=== PATIENT | male | born 1935 | race Caucasian/White ===

== ENCOUNTER 2017-03-10 15:20 | Inpatient (IN) | payer MEDICARE ==
[~2017-03-10 15:20] MED LIST: ISOVUE-370 76%-LOCM 1 ML ONE; Iopamidol 370 76% 50 ML VIAL FS ONE
[2017-03-10] MEDS ORDERED: Ondansetron HCl/PF 4 MG/2 ML Vial ONE ×2 (16:27→18:50)
[2017-03-10] MEDS ORDERED: Fentanyl 100 MCG/2 ML VIAL ONE (16:27)
[2017-03-10 16:32] LABS: Hematocrit 52.1 % (42.0-52.0); Mean Platelet Volume 8.8 fL (7.4-10.4); Red Blood Cell (RBC) Count 5.14 mill/uL (4.70-6.10); White Blood Cell (WBC) Count 14.9 thou/uL (4.8-10.8)
[2017-03-10 16:45] LABS: Band 19 % (5-11); Macrocytosis SLIGHT = 6-15 cells (100X) (0-5/hpf); Neutrophil 71 % (42-75); Polychromasia SLIGHT = 2-3 cells (100X) (0-2/hpf); Reactive Lymphocytes 3 % (0-10)
[2017-03-10 16:47] LABS: ALT (SGPT) 35 U/L (8-55); AST (SGOT) 30 U/L (5-34); Alkaline Phosphatase 83 U/L (40-150); Anion Gap 14 mmol/L (10-20); BUN (Urea Nitrogen) 25 mg/dL (8.4-25.7); Bilirubin, Total 1.6 mg/dL (0.2-1.2); Calc. Creatinine Clearance 0 mL/min (70-130); Calcium 9.4 mg/dL (7.8-10.44); Carbon Dioxide 27 mmol/L (23-31); Chloride 100 mmol/L (98-107); Estimated GFR-MDRD 67; Lipase 8 U/L (8-78)
[2017-03-10 16:52] LABS: Troponin I Less than 0.010 ng/mL (< 0.028)
--- NOTE | 2017-03-10 16:59 | RAD ---
PORTABLE CHEST: Date: 03/10/17 HISTORY: Chest pain. COMPARISON: 06/24/15. FINDINGS: Heart size within normal limits. There are postop sternotomy changes. Lungs are clear of infiltrates. IMPRESSION: No active intrathoracic disease. POS: [facility]
--- NOTE | 2017-03-10 18:20 | CT ---
CT ABDOMEN AND PELVIS WITH CONTRAST: Date: 03/10/17 HISTORY: Small bowel obstruction. COMPARISON: None FINDINGS: Lung bases are clear. No pericardial effusion. Prior cholecystectomy. The liver is unremarkable, as well as the pancreas and spleen. Adrenal glands are normal. No hydronephrosis. There is a focal area of calcifications within the mid to small bowel mesentery. There is increased m esenteric fat of the small bowel. The cecum is in the midline of the abdomen. There is proximal small bowel rotation, as well as invers e relationship of superior mesenteric artery and vein. Hypodensity is present of the superior pole right kidney, although is too small to characterize on to day's examination. Moderate degenerative disc space disease L4-L5 and L5-S1, along with associated facet arthropathy. Ca lcifications of the iliolumbar ligaments present bilaterally. IMPRESSION: 1. Partially calcified mass in the central mesentery of the mid to small bowel with increased mesent jamie fat, as well as increased number of lymph nodes and mild mesenteric edema. 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 Recommend clinical correlation for evaluation of carcinoid tumor. If there is suggestion of this, a nuclear medicine octreoscan can be performed. 2. Pelvic side wall lymph node dissection and prostatectomy. No abnormal soft tissue thickening or e vidence of obturator or internal iliac adenopathy. POS: [facility]
[2017-03-10] MEDS ORDERED: Promethazine HCl 25 MG/ML VIAL ONE (20:19)
--- NOTE | 2017-03-10 21:30 | PDOC.EVN ---
Event Note - Event Note Event Note: [id number] 1. Calcified mass 2. Nausea and vomiting 3. r/o carcionoid tumor 4. htn plan: see orders
[2017-03-10] MEDS ORDERED: Promethazine HCl 25 MG in Sodium Chloride 0.9% 50 ML IVPB PRN (21:34)
[2017-03-10] MEDS ORDERED: Ondansetron ODT 4 MG TAB SL PRN (21:37)
[2017-03-10] MEDS ORDERED: Ondansetron HCl/PF 4 MG/2 ML Vial IVP PRN (21:37)
[2017-03-10] MEDS ORDERED: Acetaminophen 325 MG TAB PO PRN (21:44)
[2017-03-10] MEDS ORDERED: HYDROcodone/Acetaminophen 5/325 mg Tablet PO PRN (21:44)
[2017-03-10] MEDS ORDERED: Dextrose 5 %-0.45 % NaCl 1,000 ML IV SCH (21:45)
[2017-03-10 22:15] VITALS: BMI 29.1
[2017-03-10] MEDS: Dextrose 5 % And 0.9 % NaCl 1,000 ML IV SCH (22:37)
[2017-03-11] MEDS: Piperacillin/Tazobactam 3.375 GM in Sodium Chloride 0.9% 100 ML IVPB SCH ×5 (00:13→23:19)
[2017-03-11 05:21] LABS: #Eosinphils 0.1 thou/uL (0.0-0.7); #Monocytes 0.8 thou/uL (0.11-0.59); #Neutrophils 8.7 thou/uL (1.40-6.50); %Basophils 0.1 % (0.0-1.0); %Eosinophils 0.5 % (0.0-10.0); %Lymphocytes 9.2 % (21.0-51.0); %Monocytes 7.7 % (0.0-10.0); Hematocrit 45.4 % (42.0-52.0); Mean Platelet Volume 7.6 fL (7.4-10.4); Red Blood Cell (RBC) Count 4.47 mill/uL (4.70-6.10); White Blood Cell (WBC) Count 10.5 thou/uL (4.8-10.8)
[2017-03-11 05:32] LABS: ALT (SGPT) 29 U/L (8-55); AST (SGOT) 24 U/L (5-34); Alkaline Phosphatase 61 U/L (40-150); Anion Gap 10 mmol/L (10-20); BUN (Urea Nitrogen) 23 mg/dL (8.4-25.7); Bilirubin, Total 1.4 mg/dL (0.2-1.2); Calc. Creatinine Clearance 79 mL/min (70-130); Calcium 8.4 mg/dL (7.8-10.44); Carbon Dioxide 25 mmol/L (23-31); Chloride 104 mmol/L (98-107); Estimated GFR-MDRD 68; Globulin 2.5 g/dL (2.4-3.5); Protein, Total 5.7 g/dL (5.8-8.1)
--- NOTE | 2017-03-11 05:56 | HP ---
CHIEF COMPLAINT: Abdominal pain, nausea and vomiting. HISTORY OF PRESENT ILLNESS: The patient is a 81 years old male with past medical history of hypertension, hyperlipidemia, GERD and coronary artery disease who came today complaining of abdominal distention, nausea and vomiting. The patient said he was doing fine and all of a sudden today, he started having the abdominal distention, felt like abdomen bloated, then he started having numerous episodes of nausea and vomiting since then. Patient started having diarrhea also since this morning. Denies any blood in the stool. Denies any black stool. Denies any blood in the vomit. He complains of abdominal bloating. Denies any pain, but feels distended. Denies any chest pain, denies any trouble breathing, denies stiffness. PAST MEDICAL HISTORY: As per HPI. PAST SURGICAL HISTORY: CABG, cholecystectomy and prostatectomy. SOCIAL HISTORY: Denies smoking, denies alcohol, denies any drugs. FAMILY HISTORY: Denies any heart problems. REVIEW OF SYSTEMS: Constitutional: Denies any fever, denies any chills. Eyes : Denies vision problems. Ears: Denies hearing loss. Neck: Denies any neck pain. Cardiovascular System: Denies any chest pain. Gastrointestinal: Positive for abdominal pain. Positive for nausea and vomiting. Genitourinary: Denies dysuria. Integument: Denies any rash. Cranial Nervous System: Denies syncope, denies lightheadedness. Psychiatric: Denies anxiety. Musculoskeletal: Denies any joint deformities. All other review of systems are reviewed and are negative. PHYSICAL EXAMINATION: VITAL SIGNS: At the time of H&P performed, blood pressure is 153/73, pulse ox 96% and heart rate 92. GENERAL: The patient appears comfortable. HEENT: Pupils are equal, round and reactive. Anterior nares patent. Teeth intact. Tongue is moist. NECK: Supple. No JVD. CARDIOVASCULAR SYSTEM: S1 and S2 present. Regular rate and rhythm. No murmurs , no rubs, no gallops. RESPIRATORY SYSTEM: No wheezing, no rhonchi. Breath sounds bilaterally. GASTROINTESTINAL: Abdomen is soft and nontender. No guarding, no organomegaly. Distended. Mild tender to palpate. No rebound tenderness. In the right upper quadrant, old scar present. PSYCHIATRIC: Mood is appropriate at this time. INTEGUMENT: No rashes seen. LABORATORY DATA: Labs at the time of H&P performed, white count 14.9, hemoglobin 17.8 and platelet count is 137. BMP showed sodium of 136, potassium 4.7, chloride 100, CO2 of 27, BUN of 25 and creatinine 1.07. IMAGING DATA: CT abdomen and pelvis are positive for partially calcified mass in the central mesentery of the mid to small bowel with increased mesenteric fat as well as increased number of lymph nodes and mild mesenteric edema. 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 Clinical correlation of pelvic sidewall lymph node is present, dissection and prostatectomy present. ASSESSMENT AND PLAN: The patient is a 81 years old male. 1. Nausea, vomiting and abdominal distention. Plan to consult GI to evaluate patient. Plan to monitor the patient closely. 2. Calcified mass in the central mesentery, need to rule out carcinoid tumor. We will go ahead and consult Hematology/Oncology to evaluate the patient. We will start patient on IV fluids. 3. Nausea and vomiting, p.r.n. antiemetics. 4. Hypertension. Continue home blood pressure medications. 5. History of hyperlipidemia. Continue statins. 6. History of coronary artery disease. Continue home medications. The case was discussed in detail with the patient. MTDD
[2017-03-11] MEDS: Heparin 5,000 UNITS/ML VIAL SC SCH ×3 (08:25→20:54)
[2017-03-11] MEDS: Dextrose 5 % And 0.9 % NaCl 1,000 ML IV SCH ×2 (11:41→23:19)
--- NOTE | 2017-03-11 17:09 | PDOC.PN ---
- Subjective Encounter Start Date: 03/11/17 Encounter Start Time: 10:00 Pt seen for followup re: diarrhea. Denies chest pain, shortness of breath. nausea+, no vomiting. Has loose stools. - Objective MAR Reviewed: Yes Vital Signs & Weight: Vital Signs (12 hours) Temp Pulse Resp BP Pulse Ox 03/11/17 12:00 97.4 F L 79 20 169/76 H 96 03/11/17 08:00 98.1 F 81 18 153/75 H 96 Weight Admit Weight 214 lb 15.2 oz Weight 214 lb 15.2 oz I&O: 03/10/17 03/11/17 03/12/17 06:59 06:59 06:59 Intake Total 700 480 Output Total 100 Balance 600 480 Result Diagrams: 03/11/17 04:42 03/11/17 04:42 Phys Exam - Physical Examination Constitutional: NAD HEENT: PERRLA, moist MMs, sclera anicteric, oral pharynx no lesions Neck: no nodes, no JVD, supple, full ROM Respiratory: no wheezing, no rales, no rhonchi, clear to auscultation bilateral Cardiovascular: RRR, no rub Gastrointestinal: soft, non-tender, no distention, positive bowel sounds Musculoskeletal: pulses present Neurological: non-focal, moves all 4 limbs Lymphatic: no nodes Psychiatric: normal affect, A&O x 3 Skin: no rash, normal turgor, cap refill <2 seconds Dx/Plan (1) Diarrhea Code(s): R19.7 - DIARRHEA, UNSPECIFIED Status: Acute (2) Hyponatremia Code(s): E87.1 - HYPO-OSMOLALITY AND HYPONATREMIA Status: Acute (3) Abdominal pain Code(s): R10.9 - UNSPECIFIED ABDOMINAL PAIN Status: Acute (4) Nausea Code(s): R11.0 - NAUSEA Status: Acute (5) HTN (hypertension) Code(s): I10 - ESSENTIAL (PRIMARY) HYPERTENSION Status: Chronic (6) Dyslipidemia Code(s): E78.5 - HYPERLIPIDEMIA, UNSPECIFIED Status: Chronic (7) GERD (gastroesophageal reflux disease) Code(s): K21.9 - GASTRO-ESOPHAGEAL REFLUX DISEASE WITHOUT ESOPHAGITIS Status: Chronic - Plan PT/OT, out of bed/ambulate, DVT proph w/SCDs * . Await stool studies. Await GI consult. 5HIAA level pending, oncology consulted re; ? carcinoid. Hyponatremia mild, will recheck. Review of Systems - Review of Systems Constitutional: negative: Fever, Chills, Sweats, Weakness, Malaise Respiratory: negative: Cough, Dry, Shortness of Breath, Hemoptysis, SOB with Excertion, Pleuritic Pain, Sputum, Wheezing Cardiovascular: negative: Chest Pain, Palpitations, Orthopnea, Paroxysmal Noc. Dyspnea, Edema, Light Headedness Gastrointestinal: Nausea, Abdominal Pain. negative: Vomiting, Diarrhea, Constipation, Melena, Hematochezia Genitourinary: negative: Dysuria, Frequency, Incontinence, Hematuria, Retention - Medications/Allergies Allergies/Adverse Reactions: Allergies Allergy/AdvReac Type Severity Reaction Status Date / Time codeine Allergy "pass out" Verified 03/10/17 22:08 latex Allergy Rash Verified 03/10/17 22:08 Medications: Current Medications Acetaminophen (Tylenol) 650 mg PO Q4H PRN PRN Reason: Headache/Fever or Pain Hydrocodone Bitart/Acetaminophen ([place] 5/325) 1 tab PO Q4H PRN PRN Reason: Moderate Pain (4-6) Aspirin (Ecotrin) 325 mg PO DAILY [facility] Atorvastatin Calcium (Lipitor) 20 mg PO HS [facility] Cholecalciferol (Vitamin D3) 5,000 units PO DAILY [facility] Diphenhydramine HCl (Benadryl) 25 mg PO HS [facility] Heparin Sodium (Porcine) (Heparin) 5,000 units SC TID [facility] Last Admin: 03/11/17 15:55 Dose: 5,000 units Promethazine HCl 25 mg/ Sodium (Chloride) 51 mls @ 204 mls/hr IVPB Q6H PRN PRN Reason: severe vomiting Stop: 03/14/17 03:30 Dextrose/Sodium Chloride (D5 0.9% Ns) 1,000 mls @ 75 mls/hr IV .[id number] [facility] Last Admin: 03/11/17 11:41 Dose: 1,000 mls Piperacillin Sod/Tazobactam (Sod 3.375 gm/ Sodium Chloride) 100 mls @ 200 mls/ hr IVPB Q6HR [facility] Last Admin: 03/11/17 11:40 Dose: 100 mls Lisinopril (Zestril) 5 mg PO DAILY [facility] Metoprolol Tartrate (Lopressor) 25 mg PO BID [facility] Non-Formulary Medication (Ascorbic Acid [Vitamin C With Windy Hips Ext Release]) 500 mg PO BID [facility] Non-Formulary Medication (Glu/Jaswinder-Msm#1/D3/C/Mn/Fayd/Bor [Glucosamine Chondroitin Complex]) 1 tab PO HS [facility] Non-Formulary Medication (Omeprazole [Omeprazole]) 40 mg PO DAILY [facility] Non-Formulary Medication (Vitamin B Complex & Vit C No.4 [Super B Complex]) 150 mg PO DAILY [facility] Simethicone (Mylicon Chewable) 40 mg PO Q6H PRN PRN Reason: Gas Pain Sodium Chloride (Flush - Normal Saline) 10 ml IVF Q12HR [facility] Last Admin: 03/11/17 08:30 Dose: Not Given Sodium Chloride (Flush - Normal Saline) 10 ml IVF PRN PRN PRN Reason: Saline Flush
--- NOTE | 2017-03-11 20:33 | CON ---
DATE OF CONSULTATION: 03/11/2017 REASON FOR CONSULTATION: Mesenteric mass. HISTORY OF PRESENT ILLNESS: Mr. Acevedo is a very pleasant 81-year-old gentleman who presented to the emergency room yesterday with abdominal bloating and vomiting. He states both and Saturday evening, he had some abdominal discomfort in his upper abdomen. He took Tums and it improved. Saturday, he was okay. Saturday, he began to have the pain during the day and eventually led to vomiting x6. He then began to have diarrhea, so he came to the emergency room for evaluation. He had an abdominal pelvis CT, which showed a partially calcified mass in the central mesentery of the mid small bowel. There was increased mesenteric fat as well as an increased number of lymph nodes and mild mesenteric edema. The radiologist felt that this is likely sequelae with chronic sclerosing enteritis; however, carcinoid tumor could not be ruled out. The patient sees Dr. Adam for his GI issues. He was last seen in 2014 for peptic ulcer disease. Prior to that in 2011, he was seen for abdominal pain consistent with his pain today. Patient states this pain has been intermittent over several years and relieved with belching. He denies any melena, hematochezia or hematuria. No weight loss, no chills, night sweats or fever. Since admission, he has had diarrhea with significant improvement in his abdominal discomfort. PAST MEDICAL HISTORY: 1. Peptic ulcer disease. 2. Hypertension. 3. Dyslipidemia. 4. Coronary artery disease. 5. History of prostate cancer. PAST SURGICAL INTERVENTION: 1. Coronary artery bypass grafting x3. 2. Prostatectomy in 1997. 3. "Decompression" surgery as an infant. 4. Cholecystectomy. ALLERGIES: CODEINE and LATEX. HOME MEDICATIONS: 1. Ecotrin 325 mg daily. 2. Lipitor 20 mg daily. 3. Vitamin D3 5000 units daily. 4. [place] p.r.n. 5. Zestril 5 mg daily. 6. Lopressor 25 mg daily. 7. Prilosec 40 mg daily. FAMILY HISTORY: No history of GI cancer. 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 No alcohol, tobacco or illicit drug use. REVIEW OF SYSTEMS: Twelve-point review of systems is negative except for noted in HPI. PHYSICAL EXAMINATION: VITAL SIGNS: Temperature is 97.4, pulse is 79, respiratory rate is 20, BP is 169/76. He is 96% on room air. GENERAL: A well-developed, well-nourished male in no acute distress. HEENT: Normocephalic, atraumatic. Pupils equal and reactive to light. NECK: Supple. CARDIOVASCULAR: Regular rate and rhythm. LUNGS: Clear to auscultation. ABDOMEN: Distended. He has a small abdominal hernia above his umbilicus. Bowel sounds are positive. There is no organomegaly palpable. EXTREMITIES: No clubbing, cyanosis or edema. SKIN: No rash. HEMATOLOGIC: No petechia or purpura. NEUROLOGIC: Nonfocal. PSYCHIATRIC: The patient is alert, oriented and appropriate. PERTINENT LABORATORY AND X-RAYS: Current WBCs are 10.5, hemoglobin 15.4, hematocrit 45.4, platelet count 172,000, 83% neutrophils and 10% lymphocytes. Sodium 135, potassium 3.8, chloride 104, CO2 is 25, BUN is 23, creatinine 1.05, calcium 8.4, total bilirubin is 1.4, AST is 24, ALT is 29, alkaline phosphatase is 61, CK-MB is 48 and troponin is negative. Serum total protein 5.7, albumin 3.2 and globulin 2.5. Urine was negative for bacteria. Radiology per HPI. ASSESSMENT: 1. Mesenteric mass. 2. Abdominal pain with nausea, vomiting and diarrhea. DISCUSSION: Await GI opinion as it seems similar to the pain he has had multiple years ago. If Dr. Adam feels that this is not an enteritis, we will consider consultation to General Surgery for a tissue biopsy. Further recommendations will be based on the tissue biopsy. JASON
[2017-03-11] MEDS: diphenhydrAMINE 25 MG CAP PO SCH (20:54)
[2017-03-11] MEDS: Metoprolol Tartrate 25 MG TAB PO SCH (20:54)
[2017-03-11] MEDS: Atorvastatin Calcium 20 MG TAB PO SCH (20:54)
[2017-03-11] MEDS: Ascorbic Acid 500 mg Chewable Tablet PO SCH (20:54)
[2017-03-11] MEDS ORDERED: [UNRECOGNIZED DRUG - OTHER] PO SCH (21:00)
[2017-03-12] MEDS: Aspirin 325 mg Enteric Coated Tablet PO SCH ×2 (03:04→09:01)
[2017-03-12 04:31] LABS: #Basophils 0.1 thou/uL (0.0-0.2); #Eosinphils 0.3 thou/uL (0.0-0.7); #Lymphocytes 1.9 thou/uL (1.20-3.40); #Monocytes 1.3 thou/uL (0.11-0.59); %Basophils 0.7 % (0.0-1.0); %Lymphocytes 20.3 % (21.0-51.0); %Monocytes 13.1 % (0.0-10.0); Hematocrit 44.5 % (42.0-52.0); Mean Platelet Volume 7.5 fL (7.4-10.4); Red Blood Cell (RBC) Count 4.32 mill/uL (4.70-6.10); White Blood Cell (WBC) Count 9.6 thou/uL (4.8-10.8)
[2017-03-12 04:46] LABS: Anion Gap 10 mmol/L (10-20); BUN (Urea Nitrogen) 21 mg/dL (8.4-25.7); Calc. Creatinine Clearance 70 mL/min (70-130); Calcium 8.4 mg/dL (7.8-10.44); Carbon Dioxide 23 mmol/L (23-31); Chloride 108 mmol/L (98-107); Estimated GFR-MDRD 60
[2017-03-12] MEDS: Piperacillin/Tazobactam 3.375 GM in Sodium Chloride 0.9% 100 ML IVPB SCH ×2 (05:35→13:45)
[2017-03-12] MEDS: Metoprolol Tartrate 25 MG TAB PO SCH ×2 (06:29→20:28)
[2017-03-12] MEDS ORDERED: Lidocaine 1% PF 5 ML VIAL ONE (08:06)
[2017-03-12] MEDS ORDERED: Propofol 200 MG/20 ML VIAL ONE (08:06)
--- NOTE | 2017-03-12 08:52 | CON ---
DATE OF CONSULTATION: 03/11/2017 REFERRING PHYSICIAN: Rolan England MD REASON FOR CONSULTATION: Abdominal pain, nausea, vomiting, and diarrhea. HISTORY OF PRESENT ILLNESS: Scott Acevedo is a very pleasant 81-year-old male hospitalized yesterday with abdominal discomfort, recurrent nausea and vomiting. 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 Apparently over the last several days, he has been feeling bloated and feeling nauseous off and on. He says he does have some dizziness off and on. He has to keep his head elevated to sleep. The patient had actually no abdominal pain but more abdominal discomfort. He was feeling sick to stomach with vomiting several times, this happened yesterday morning. He had two stools yesterday morning, both stools are normal in consistency. The patient had no diarrhea before he came to the ER. In the ER, an abdominal CAT scan with contrast done. After contrast study, he started having multiple watery stools. He has had 6 stools today. At times, the stools are accompanied by urgency, and at times, he cannot hold the stool. He never had any similar episode in the past. The patient is actually feeling better today, but he still feels bloated off and on , feeling nauseous off and on. In the ER, the patient had an abdominal CAT scan. Abdominal CAT scan showed a calcified mesenteric mass with some enlarged lymph nodes. The patient had the same findings for several years. I believe he has had a CAT scan done in 2010, which showed same findings. The patient at that time refused for surgery. He was seen again by me in 2011 and had another CAT scan done. The CAT scan findings remained the same, nothing changed. The patient has no weight loss. The patient had surgery done again in 2011. The patient has had an EGD in 2014 and was found to have gastric ulcer. It has been treated appropriately. The patient has no history of fever, no night sweats. No weight loss. He has no other relevant symptoms. ALLERGIES: CODEINE and LATEX. MEDICAL ILLNESSES: 1. Hypertension. 2. Hyperlipidemia. 3. Coronary artery disease. 4. Peptic ulcer. 5. History of prostate cancer, status post surgery in 1997. 6. Status post coronary artery bypass graft in 2015. 7. Status post open cholecystectomy in 1984. He also has had EGD and colonoscopy in the past. SOCIAL HISTORY: The patient is a . His of amyloidosis in 2011. He does not smoke or drink alcohol. MEDICATIONS: Include Ecotrin, Lipitor, vitamin D3, [place] p.r.n., Zestril, Lopressor, and Prilosec. FAMILY HISTORY: Mother is 102 years old and she is alive. One son has panic attack, anxiety; other son, depression. REVIEW OF SYSTEMS: A 10-point system review remarkable basically for abdominal bloating, abdominal swelling, and vomiting off and on. He also has some regurgitation off and on. Diarrhea is actually new onset and started after ER CAT scan done last night. PHYSICAL EXAMINATION: GENERAL: Patient is obese, appears very comfortable. He is awake, alert, and communicative. He is oriented to time, place, and person. VITAL SIGNS: He is afebrile. His pulse is 76, blood pressure is 160/76. HEENT: Conjunctivae clear. NECK: Supple. No adenitis or thyromegaly noted. CARDIOVASCULAR: First and second heart sounds normal. LUNGS: Clear to auscultation. ABDOMEN: Soft to palpate. There is an operative scar over the right upper quadrant. He does have a ventral hernia. Abdomen is nontender. There is no organomegaly or masses. Bowel sounds present. EXTREMITIES: No edema. LABORATORY: Shows CBC: WBC 5000, hemoglobin 15.4, hematocrit 45.4, platelet count 178,000, polymorphs 83, lymphocytes 10. His electrolytes are normal. BUN is slightly high at 23, creatinine 1.05, calcium 8.4, bilirubin 1.4, AST 24 , ALT 29, alkaline phosphatase 61, total protein 5.7, albumin 3.2, globulin 2.5. Urine is negative. An abdominal CAT scan shows a calcified mesenteric mass, which is the same finding as before. CLINICAL IMPRESSION: A 81-year-old male with nausea with vomiting and he says he vomited for 7 times yesterday morning. He had normal stools x3 yesterday morning. After he came to the ER, he had a CAT scan with oral contrast. Afterwards, he was having severe diarrhea, but now he has no diarrhea. He has a history of intermittent episodes of abdominal bloating, swelling, nausea, some regurgitation. The calcified mass in the mesentery_ is really not causing the symptoms. He has had the same findings for several years. The patient had refused to have surgery for calcified mesenteric mass. Apparently, it does not appear to be malignant except that he has no weight loss or any systemic symptoms. Plan for an EGD because of chronic dyspepsia, abdominal bloating, nausea, and vomiting. I will leave it up to him to decide if he wants to have any further workup done for his mesenteric mass as he has had these same findings for many years. I will also recommend obtaining some stool studies because of the severe diarrhea. MTDD
[2017-03-12] MEDS: Lisinopril 5 MG TAB PO SCH (09:02)
[2017-03-12] MEDS: Ascorbic Acid 500 mg Chewable Tablet PO SCH ×2 (09:02→20:26)
[2017-03-12] MEDS: Heparin 5,000 UNITS/ML VIAL SC SCH ×3 (09:03→20:28)
[2017-03-12] MEDS: Stress 600 With Zinc 1 TAB PO SCH (09:09)
--- NOTE | 2017-03-12 11:52 | OP ---
DATE OF PROCEDURE: 03/12/2017 SURGEON: Sally Adam M.D. OPERATIVE PROCEDURE: Esophagogastroduodenoscopy with biopsy. PREOPERATIVE DIAGNOSES: Abdominal bloating, nausea, and vomiting. POSTOPERATIVE DIAGNOSES: 1. Esophagitis distal esophagus. 2. Ulcers in the duodenal bulb. 3. Otherwise, normal exam. PROCEDURE IN DETAIL: The patient was placed on his left lateral position and was given sedation by A nesthesia Department. A [employer]ax video gastroscope under direct vision was passed down the oropharynx, past the GE junction, into the stomach and subsequently into the descending duodenum. The scope was advanced as far as possible. The esophageal mucosa appeared normal over the upper 2/3. At the GE j unction, there was mucosal edema and erythema noted. Retroflexion failed to show any lesions in the fundus or cardia. The gastric body and gastric antrum, no lesions seen. The scope was advanced into the duodenal bulb. The patient was found to have 3 ulcerations. The descending duodenum entered an d advanced as far down as possible. There was a large amount of bile noted. No pyloric obstruction or any duodenal obstruction. Although there is an area where there was some angulation, the scope wa s advanced without difficulty into the descending duodenum. Biopsies were obtained from the gastric antrum and gastric body. The stomach was decompressed and the scope removed. RECOMMENDATIONS: 1. Continue PPI. 2. As per the descending mass, may obtain surgical consult.
[2017-03-12] MEDS: Dextrose 5 % And 0.9 % NaCl 1,000 ML IV SCH ×2 (14:51→18:14)
[2017-03-12] MEDS: Simethicone Chewable 80 MG TAB PO PRN (15:40)
--- NOTE | 2017-03-12 17:13 | PDOC.PN ---
- Subjective Encounter Start Date: 03/12/17 Encounter Start Time: 17:11 Pt seen for followup re: duodenal ulcer. Denies chest pain, shortness of breath , fevers or chills. - Objective MAR Reviewed: Yes Vital Signs & Weight: Vital Signs (12 hours) Temp Pulse Resp BP BP Pulse Ox 03/12/17 17:09 98.2 F 62 16 159/71 H 96 03/12/17 12:27 98.7 F 62 16 164/71 H 96 03/12/17 09:12 98.2 F 58 L 16 148/83 H 95 03/12/17 09:02 74 149/71 H Weight Admit Weight 214 lb 15.2 oz Weight 214 lb 15.2 oz I&O: 03/11/17 03/12/17 03/13/17 06:59 06:59 06:59 Intake Total 700 2045 Output Total 100 350 Balance 600 1695 Result Diagrams: 03/12/17 03:51 03/12/17 03:51 Phys Exam - Physical Examination Constitutional: NAD HEENT: moist MMs, oral pharynx no lesions Neck: supple Respiratory: clear to auscultation bilateral Cardiovascular: RRR Gastrointestinal: soft, non-tender, positive bowel sounds Musculoskeletal: pulses present Neurological: moves all 4 limbs Psychiatric: normal affect, A&O x 3 Skin: no rash Dx/Plan (1) Duodenal ulcer Status: Acute (2) Esophagitis Code(s): K20.9 - ESOPHAGITIS, UNSPECIFIED Status: Acute (3) HTN (hypertension) Code(s): I10 - ESSENTIAL (PRIMARY) HYPERTENSION Status: Chronic (4) Dyslipidemia Code(s): E78.5 - HYPERLIPIDEMIA, UNSPECIFIED Status: Chronic (5) GERD (gastroesophageal reflux disease) Code(s): K21.9 - GASTRO-ESOPHAGEAL REFLUX DISEASE WITHOUT ESOPHAGITIS Status: Chronic (6) Abdominal pain Code(s): R10.9 - UNSPECIFIED ABDOMINAL PAIN Status: Resolved (7) Nausea Code(s): R11.0 - NAUSEA Status: Resolved (8) Hyponatremia Code(s): E87.1 - HYPO-OSMOLALITY AND HYPONATREMIA Status: Resolved (9) Diarrhea Code(s): R19.7 - DIARRHEA, UNSPECIFIED Status: Resolved - Plan PT/OT, out of bed/ambulate, DVT proph w/SCDs * . s/p EGD. Continue PPI. Discussed with pt re: teddy burciaga. He wants to wait and discuss with his PCP before proceeding further. No clear indication for antibiotics, discontinue. Review of Systems - Review of Systems Cardiovascular: negative: Chest Pain, Palpitations, Orthopnea, Paroxysmal Noc. Dyspnea, Edema, Light Headedness Gastrointestinal: negative: Nausea, Vomiting, Abdominal Pain, Diarrhea, Constipation, Melena, Hematochezia Genitourinary: negative: Dysuria, Frequency, Incontinence, Hematuria, Retention - Medications/Allergies Allergies/Adverse Reactions: Allergies Allergy/AdvReac Type Severity Reaction Status Date / Time codeine Allergy "pass out" Verified 03/10/17 22:08 latex Allergy Rash Verified 03/10/17 22:08 Medications: Current Medications Acetaminophen (Tylenol) 650 mg PO Q4H PRN PRN Reason: Headache/Fever or Pain Hydrocodone Bitart/Acetaminophen ([place] 5/325) 1 tab PO Q4H PRN PRN Reason: Moderate Pain (4-6) Ascorbic Acid (Vitamin C) 500 mg PO BID [facility] Last Admin: 03/12/17 09:02 Dose: 500 mg Aspirin (Ecotrin) 325 mg PO DAILY [facility] Last Admin: 03/12/17 09:01 Dose: 325 mg Atorvastatin Calcium (Lipitor) 20 mg PO HS [facility] Last Admin: 03/11/17 20:54 Dose: 20 mg Cholecalciferol (Vitamin D3) 5,000 units PO DAILY [facility] Last Admin: 03/12/17 09:03 Dose: 5,000 units Diphenhydramine HCl (Benadryl) 25 mg PO HS [facility] Last Admin: 03/11/17 20:54 Dose: 25 mg Heparin Sodium (Porcine) (Heparin) 5,000 units SC TID [facility] Last Admin: 03/12/17 15:34 Dose: 5,000 units Promethazine HCl 25 mg/ Sodium (Chloride) 51 mls @ 204 mls/hr IVPB Q6H PRN PRN Reason: severe vomiting Stop: 03/14/17 03:30 Dextrose/Sodium Chloride (D5 0.9% Ns) 1,000 mls @ 75 mls/hr IV .[id number] [facility] Last Admin: 03/12/17 14:51 Dose: Not Given Piperacillin Sod/Tazobactam (Sod 3.375 gm/ Sodium Chloride) 100 mls @ 200 mls/ hr IVPB Q6HR [facility] Last Admin: 03/12/17 13:45 Dose: 100 mls Lisinopril (Zestril) 5 mg PO DAILY [facility] Last Admin: 03/12/17 09:02 Dose: 5 mg Metoprolol Tartrate (Lopressor) 25 mg PO BID [facility] Last Admin: 03/12/17 06:29 Dose: 25 mg Multivitamins/Zinc (Stress 600 With Zinc) 1 tab PO QAM [facility] Last Admin: 03/12/17 09:09 Dose: 1 tab Pantoprazole Sodium (Protonix) 40 mg PO DAILY [facility] Last Admin: 03/12/17 09:03 Dose: 40 mg Simethicone (Mylicon Chewable) 40 mg PO Q6H PRN PRN Reason: Gas Pain Last Admin: 03/12/17 15:40 Dose: 40 mg Sodium Chloride (Flush - Normal Saline) 10 ml IVF Q12HR [facility] Last Admin: 03/12/17 09:04 Dose: 10 ml Sodium Chloride (Flush - Normal Saline) 10 ml IVF PRN PRN PRN Reason: Saline Flush
[2017-03-12] MEDS: Atorvastatin Calcium 20 MG TAB PO SCH (20:27)
[2017-03-12] MEDS: diphenhydrAMINE 25 MG CAP PO SCH (20:27)
[2017-03-13] MEDS: Simethicone Chewable 80 MG TAB PO PRN (01:36)
[2017-03-13 04:51] LABS: #Eosinphils 0.4 thou/uL (0.0-0.7); #Lymphocytes 1.8 thou/uL (1.20-3.40); #Neutrophils 5.6 thou/uL (1.40-6.50); %Basophils 0.1 % (0.0-1.0); %Eosinophils 4.8 % (0.0-10.0); %Lymphocytes 19.9 % (21.0-51.0); %Monocytes 11.3 % (0.0-10.0); Mean Platelet Volume 7.1 fL (7.4-10.4); Red Blood Cell (RBC) Count 4.11 mill/uL (4.70-6.10); White Blood Cell (WBC) Count 8.8 thou/uL (4.8-10.8)
[2017-03-13 05:07] LABS: Anion Gap 8 mmol/L (10-20); BUN (Urea Nitrogen) 14 mg/dL (8.4-25.7); Calc. Creatinine Clearance 89 mL/min (70-130); Calcium 8.3 mg/dL (7.8-10.44); Carbon Dioxide 24 mmol/L (23-31); Chloride 109 mmol/L (98-107); Estimated GFR-MDRD 78
[2017-03-13] MEDS: Dextrose 5 % And 0.9 % NaCl 1,000 ML IV SCH (05:08)
[2017-03-13] MEDS ORDERED: HYDROcodone/Acetaminophen 5/325 mg Tablet PO PRN ×2 (07:20)
[2017-03-13 07:32] VITALS: BP 154/89; TEMP 97.8
[2017-03-13] MEDS: Ascorbic Acid 500 mg Chewable Tablet PO SCH (08:28)
[2017-03-13] MEDS: Stress 600 With Zinc 1 TAB PO SCH (08:28)
[2017-03-13] MEDS: Lisinopril 5 MG TAB PO SCH (08:29)
[2017-03-13] MEDS: Aspirin 325 mg Enteric Coated Tablet PO SCH (08:30)
[2017-03-13] MEDS: Metoprolol Tartrate 25 MG TAB PO SCH (08:30)
[2017-03-13] MEDS: Heparin 5,000 UNITS/ML VIAL SC SCH (08:31)
--- NOTE | 2017-03-13 12:59 | PDOC.PN ---
- Subjective Encounter Start Date: 03/13/17 Encounter Start Time: 11:10 -: old records requested/rev Patient seen and examined. No new complaints. No overnight events - Objective MAR Reviewed: Yes Vital Signs & Weight: Vital Signs (12 hours) Temp Pulse Resp BP BP Pulse Ox 03/13/17 08:29 65 154/89 H 03/13/17 08:00 97.8 F 65 16 03/13/17 07:28 97.8 F 65 16 154/89 H 96 03/13/17 04:00 98.3 F 64 18 152/76 H 96 Weight Admit Weight 214 lb 15.2 oz Weight 214 lb 15.2 oz I&O: 03/12/17 03/13/17 03/14/17 06:59 06:59 06:59 Intake Total 2045 2695 240 Output Total 350 1100 Balance 1695 1595 240 Result Diagrams: 03/13/17 04:24 03/13/17 04:24 Phys Exam - Physical Examination Constitutional: NAD HEENT: PERRLA, moist MMs, sclera anicteric Neck: no JVD, supple Respiratory: no wheezing, no rales, no rhonchi Cardiovascular: RRR, no significant murmur, no rub Gastrointestinal: soft, non-tender, no distention, positive bowel sounds Musculoskeletal: no edema, pulses present Neurological: non-focal, normal sensation, moves all 4 limbs Psychiatric: normal affect, A&O x 3 Skin: no rash, normal turgor Dx/Plan (1) 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 - OTHER SPECIFIED DISORDERS OF PERITONEUM Status: Acute (2) Duodenal ulcer Status: Acute (3) Esophagitis Code(s): K20.9 - ESOPHAGITIS, UNSPECIFIED Status: Acute (4) Hypokalemia Code(s): E87.6 - HYPOKALEMIA Status: Acute (5) Dyslipidemia Code(s): E78.5 - HYPERLIPIDEMIA, UNSPECIFIED Status: Chronic (6) GERD (gastroesophageal reflux disease) Code(s): K21.9 - GASTRO-ESOPHAGEAL REFLUX DISEASE WITHOUT ESOPHAGITIS Status: Chronic (7) HTN (hypertension) Code(s): I10 - ESSENTIAL (PRIMARY) HYPERTENSION Status: Chronic (8) Macrocytosis Code(s): D75.89 - OTHER SPECIFIED DISEASES OF BLOOD AND BLOOD-FORMING ORGANS Status: Chronic (9) Abdominal pain Code(s): R10.9 - UNSPECIFIED ABDOMINAL PAIN Status: Resolved (10) Diarrhea Code(s): R19.7 - DIARRHEA, UNSPECIFIED Status: Resolved (11) Hyponatremia Code(s): E87.1 - HYPO-OSMOLALITY AND HYPONATREMIA Status: Resolved (12) Nausea Code(s): R11.0 - NAUSEA Status: Resolved - Plan cont current plan of care * GI cleared for discharge * pt does not want surgery for biopsy * medication reviewed as below * symptomatic treatment * see discharge bird. Review of Systems - Review of Systems ENT: negative: Ear Pain, Ear Discharge, Nose Pain, Nose Discharge, Nose Congestion, Mouth Pain, Mouth Swelling, Throat Pain, Throat Swelling, Other Respiratory: negative: Cough, Dry, Shortness of Breath, Hemoptysis, SOB with Excertion, Pleuritic Pain, Sputum, Wheezing Cardiovascular: negative: Chest Pain, Palpitations, Orthopnea, Paroxysmal Noc. Dyspnea, Edema, Light Headedness, Other Gastrointestinal: negative: Nausea, Vomiting, Abdominal Pain, Diarrhea, Constipation, Melena, Hematochezia, Other Genitourinary: negative: Dysuria, Frequency, Incontinence, Hematuria, Retention , Other Musculoskeletal: negative: Neck Pain, Shoulder Pain, Arm Pain, Back Pain, Hand Pain, Leg Pain, Foot Pain, Other - Medications/Allergies Allergies/Adverse Reactions: Allergies Allergy/AdvReac Type Severity Reaction Status Date / Time codeine Allergy "pass out" Verified 03/10/17 22:08 latex Allergy Rash Verified 03/10/17 22:08
--- NOTE | 2017-03-13 13:39 | DIS ---
DATE OF ADMISSION: 03/10/2017 DATE OF DISCHARGE: 03/13/2017 PRIMARY CARE PHYSICIAN: Pawel Georges M.D. DISCHARGE DISPOSITION: Home. PRIMARY DISCHARGE DIAGNOSES: Duodenal bulb ulcer, calcified mesenteric mass, esophagitis, and hypokalemia. SECONDARY DISCHARGE DIAGNOSES: Dyslipidemia, gastroesophageal reflux disease, hypertension, and macrocytosis. PRIMARY PROCEDURE/OPERATION: Dr. Adam did upper endoscopy and patient was found with duodenal bulb ulcer and distal esophagitis. Abdomen and pelvis CT scan showed mesenteric calcified mass. Chest x-ray was normal. SIGNIFICANT LABORATORY DATA: WBC 8.8, hemoglobin 14.3, MCV 102, platelets 173. Sodium 138, potassium 3.4, BUN 14, creatinine 0.93, calcium 8.3, AST 24, ALT 29, alkaline phosphatase 61, albumin 3.2. Cardiac enzymes negative. DISCHARGE MEDICATIONS: Ascorbic acid 500 mg p.o. b.i.d., aspirin 325 mg p.o. daily, Lipitor 20 mg p.o. at bedtime, vitamin D3 5000 units p.o. daily, Benadryl 25 mg p.o. at bedtime, glucosamine chondroitin sulfate 1 tablet p.o. at bedtime, [place] 1 or 2 tablets p.o. q.4 hourly p.r.n., lisinopril 5 mg p.o. daily, metoprolol 25 mg p.o. b.i.d., Protonix 40 mg p.o. b.i.d., Super B- Complex 1 tablet p.o. daily. CONTRAINDICATIONS: None. CODE STATUS: FULL CODE. INPATIENT CONSULTANTS: Dr. Adam was consulted while in hospital and he did upper endoscopy. Oncology with Rip Cortes was consulted. TEST RESULTS PENDING ON DISCHARGE: None. Pathology report from stomach showed no H. pylori organism. DISCHARGE PLAN: Post hospital, patient is advised to follow up with Dr. Pawel Georges, Dr. Greg West, and Dr. Adam as instructed. HOSPITAL COURSE: A 81-year-old male who was admitted by Dr. Hernandez, please see his H&P for further details. The patient was admitted for nausea, vomiting , bloating and abdominal pain. In the emergency room, patient had CT of the abdomen and pelvis which showed calcified mesenteric mass. In the emergency room, 5-HIAA 24-hour urine collection was ordered and it was done during this hospitalization. Result is pending by the time of dictation. Patient was evaluated by freezer assistant and they recommended to do upper endoscopy. Patient underwent upper endoscopy and patient was found with duodenal ulcer and distal esophagitis. GI recommended proton pump inhibitor. We started Protonix 40 mg p.o. b.i.d. on discharge. Regarding mesenteric calcified mass, patient was not interested in going for any laparoscopic biopsy. Patient will follow up with GI as well as primary care physician to make that decision, but he was not interested during this admission to go for any biopsy for diagnosis. The patient is seen and examined at bedside today. Old medical record reviewed today. Please see my progress note from today for further details. Total time spent on discharge day more than 30 minutes. MTDD
--- NOTE | 2017-03-13 23:33 | PRG ---
DATE OF SERVICE: 03/13/2017 SUBJECTIVE: Mr. Scott Acevedo is a 81-year-old male hospitalized with nausea, vomiting, and diarrhea. An abdominal CAT scan was done initially showed a calcified mesenteric mass. The pat ient has had the same findings over the last 6 to 7 years. The patient had declined any surgical danielle luation in the past. The patient had an EGD done that revealed duodenal ulcer. No pyloric obstructi on was seen. He is tolerating diet very well. No abdominal pain, no nausea or vomiting. His diarrh ea is actually markedly improved. PHYSICAL EXAMINATION: GENERAL: The patient appears comfortable. VITAL SIGNS: Stable. CARDIOVASCULAR SYSTEM: First and second heart sounds normal. LUNGS: Clear to auscultation. ABDOMEN: Soft to palpate. No organomegaly. No tenderness. No masses. I had a long talk with the patient. He admits to being under a lot of stress lately. He has a mothe r who lives with him, and she is 102 years old. Apparently, one of his sons has panic attacks, anxie ty, and is not working. Other son has depression. The patient has been under a lot of stress lately . The patient tells me he has taken Valium for many years on a regular basis. He does see me a coup le of years ago and I placed him on Xanax and that time he was doing well. RECOMMENDATION: From GI standpoint, the patient can be discharged home. The patient will come back to me as an outpatient in the next couple of weeks. I would recommend discharging him on Xanax 0.2 m g p.o. twice a day.
[2017-03-19 10:21] LABS: 5 HIAA,Urine 3.5 mg/L (Undefined); 5 HIAA-24H Urine 2.8 mg/24 hr (0.0-14.9)
== END 2017-03-13 10:30 | disposition home or self-care (01) | DRG 384 ==
LOC: ERS 15:20 → T4-B 20:10
PROVIDERS: ADMIT Internal Medicine; ATTEND Internal Medicine
PROC: 0DB68ZX Excision of Stomach, Via Natural or Artificial Opening Endoscopic, Diagnostic (ICD-10-PCS; principal; 2017-03-12)
DX: K26.9 Duodenal ulcer, unspecified as acute or chronic, without hemorrhage or perforation (principal); D75.89 Other specified diseases of blood and blood-forming organs; K66.8 Other specified disorders of peritoneum; E87.1 Hypo-osmolality and hyponatremia; R11.2 Nausea with vomiting, unspecified; I10 Essential (primary) hypertension; E78.5 Hyperlipidemia, unspecified; K21.9 Gastro-esophageal reflux disease without esophagitis; I25.10 Atherosclerotic heart disease of native coronary artery without angina pectoris; K20.9 Esophagitis, unspecified; E87.6 Hypokalemia; Z88.5 Allergy status to narcotic agent; Z91.040 Latex allergy status; Z85.46 Personal history of malignant neoplasm of prostate; Z95.1 Presence of aortocoronary bypass graft
CPT/HCPCS: 36415; 71010; 74177; 80048; 80053; 82553; 83497; 83690; 84484; 85025; 87015; 87045; 87046; 87324; 87449; 87899; 88305; 88312; 93005; 96361; 96365; 96375; 96376; A4216; J1644; J2001; J2405; J2543; J2550; J2704; J3010; J7050

== ENCOUNTER 2017-07-18 10:44 | Outpatient (CLI) | payer MEDICARE | END 2017-07-18 10:45 | disposition home or self-care (01) | LOC: BICRAD 10:44 | PROVIDERS: ATTEND Nurse Practitioner | DX: I25.10 Atherosclerotic heart disease of native coronary artery without angina pectoris (principal); R06.02 Shortness of breath; K59.00 Constipation, unspecified; Z95.1 Presence of aortocoronary bypass graft | CPT/HCPCS: 74018 ==

== ENCOUNTER 2017-08-19 07:20 | Day surgery (SDC) | payer MEDICARE ==
[2017-08-16 15:04] VITALS: BMI 27.9
--- NOTE | 2017-08-19 11:47 | OP ---
DATE OF PROCEDURE: 08/19/2017 SURGEON: Alfonso Montero M.D. PREOPERATIVE DIAGNOSES: 1. Bloatin. History of duodenal gastric ulcers twice in the past. 3. CT scan with abnormal mesenteric calcification stable over 5-6 years. POST-PROCEDURE DIAGNOSES: EGD normal biopsy taken for Helicobacter pylori. RECOMMENDATIONS: 1. Awaiting gastrin level. 2. Follow up in my office Saturday09/02/2017 at 3:50 p.m. 3. Follow up with Dr. Georges regarding possible neurologic evaluation for upper extremity weakness, progressive over the past several months. He has had neck pain as well. An MRI may be indicated. I have asked him to discussed this with Dr. Georges. ANESTHESIA: TIVA. PROCEDURE IN DETAIL: After the patient was informed of the risks, benefits, possible complications o f endoscopy including perforation, reactions to medication and aspiration, informed consent was obtai lisette. The patient was brought to endoscopy suite where he was sedated in gradual fashion. Once was c omfortable, a bite block placed in the incisura orifice. The endoscope was advanced in the esophagus , stomach, second and third portion of duodenum. There was good visualization of the mucosa. There were no masses, lesions or arteriovenous malformat ions identified. There were no ulcers or erosions. No scarring in the antrum and duodenum, biopsy t aken from the antrum to evaluate for H. pylori. The patient has been off of PPIs for 5 days prior to his procedure and a fasting gastrin was obtained to rule out gastrinoma prior to the procedure. We will await that study. The patient tolerated the procedure well. He was brought to the recovery room in stable condition and will be discharged home .
[2017-08-19] MEDS ORDERED: Lidocaine 1% PF 5 ML VIAL ONE (15:16)
[2017-08-19] MEDS ORDERED: PROPOFOL 200 MG/20 ML VIAL ONE (15:16)
== END 2017-08-19 10:57 | disposition home or self-care (01) ==
LOC: SDC 07:20
PROVIDERS: ATTEND Internal Medicine Gastroenterology
PROC: 0DB68ZX Excision of Stomach, Via Natural or Artificial Opening Endoscopic, Diagnostic (ICD-10-PCS; principal; 2017-08-19)
DX: R63.4 Abnormal weight loss (principal); R93.3 Abnormal findings on diagnostic imaging of other parts of digestive tract; R14.0 Abdominal distension (gaseous); R29.898 Other symptoms and signs involving the musculoskeletal system; K21.9 Gastro-esophageal reflux disease without esophagitis; E78.00 Pure hypercholesterolemia, unspecified; I10 Essential (primary) hypertension; M19.90 Unspecified osteoarthritis, unspecified site; G47.30 Sleep apnea, unspecified; Z91.040 Latex allergy status; Z88.5 Allergy status to narcotic agent; Z90.79 Acquired absence of other genital organ(s); Z98.890 Other specified postprocedural states; Z85.46 Personal history of malignant neoplasm of prostate; Z87.11 Personal history of peptic ulcer disease
CPT/HCPCS: 36415; 82941; 88305; 88312; J2001; J2704